=== PATIENT | male | born 1990 | race Caucasian/White ===

== ENCOUNTER 2021-12-28 08:51 | Emergency (ER) | payer OTHER ==
[~2021-12-28] VITALS: Ht 175.3 cm; Wt 100.0 kg
[2021-12-28] MEDS ORDERED: ACETAMINOPHEN 500 MG TABLET PO ONE (09:15)
[2021-12-28 09:19] VITALS: BP 170/90
--- NOTE | 2021-12-28 09:59 | RAD ---
3 views right knee 12/28/2021 9:33 AM Indication: Reason: R knee pain, acute, localizing anteriorly just above knee Comparison: None available Findings: There is no acute fracture or dislocation. Articular surfaces are uninterupted and smooth. Soft tissues are unremarkable. Impression: No evidence of acute osseous abnormality. Electronically signed by: Rey Sainz MD (12/28/2021 9:57 AM) [id number]
[2021-12-28] MEDS ORDERED: DICL50TA2 PO (10:09)
--- NOTE | 2021-12-28 10:09 | PHYS DOC ---
Past History Past Surgical History: No Surgical History Alcohol Use: None Adult General Chief Complaint Chief Complaint: KNEE INJURY HPI HPI The patient is a 31-year-old male who is otherwise healthy. He has had intermittent chronic problems with his right knee for a long time. He presents for evaluation of right knee discomfort with onset while walking down the stairs at home prior to arrival. He felt a pop followed by discomfort. He is able to ambulate with an antalgic gait and has discomfort when ranging his right knee. Discomfort localizes to the anterior aspect of the superior knee and just above it. No other injury during the episode. Took ibuprofen prior to arrival without complete relief of symptoms. Denies weakness, numbness or tingling to the distal right leg or foot. Vital signs are appropriate here aside from elevated blood pressure. Patient was able to ambulate in. Review of Systems Review of Systems Constitutional: Denies fever or chills [] Eyes: Denies change in visual acuity, redness, or eye pain [] HENT: Denies nasal congestion or sore throat [] Respiratory: Denies cough or shortness of breath [] Cardiovascular: No additional information not addressed in HPI [] GI: Denies abdominal pain, nausea, vomiting, bloody stools or diarrhea [] : Denies dysuria or hematuria [] Musculoskeletal: Denies back pain or joint pain [] Integument: Denies rash or skin lesions [] Neurologic: Denies headache, focal weakness or sensory changes [] Endocrine: Denies polyuria or polydipsia [] All other systems were reviewed and found to be within normal limits, except as documented in this note. Current Medications Current Medications Current Medications Medications (Trade) Dose Ordered Sig/Raoul Start Time Stop Time Status Last Admin Dose Admin Acetaminophen (Tylenol) 1,000 mg 1X ONCE 12/28/21 09:15 12/28/21 09:49 DC 12/28/21 09:15 1,000 MG Allergies Allergies Allergies Coded Allergies Type Severity Reaction Last Updated Verified No Known Drug Allergies 12/28/21 No Physical Exam Physical Exam 31-year-old male appearing nontoxic and in no acute distress. Head is normocephalic and atraumatic. Neck is supple and nontender. Oropharynx is moist. Lungs are clear to auscultation at all stations. There is a normal S1 and S2 without rubs or gallops and capillary refill is appropriate, less than 2 seconds globally. Abdomen is soft, nontender and nondistended. Skin is warm and dry without cyanosis, clubbing or edema. Psychiatrically, the patient demonstrates appropriate mood and affect and is alert. Evaluation of the right lower extremity is remarkable for mild tenderness without significant swelling and without erythema, warmth or joint irritability to the superior aspect of the anterior right knee. Patient has full active and passive range of motion at the right knee but with some discomfort. No discomfort with ranging at any other joint of the right lower extremity. Right lower extremity is neurovascularly intact distally with strength out of 5, sensation intact light touch in all nerve distributions, radial, DP/PT pulses 2+, capillary refill less than 2 seconds, foot warm and well-perfused. Current Patient Data Vital Signs Vital Signs Date Time Temp Pulse Resp B/P (MAP) Pulse Ox O2 Delivery O2 Flow Rate FiO2 12/28/21 09:19 98.2 110 16 170/90 (116) 98 EKG EKG [] Radiology/Procedures Radiology/Procedures Plain films of the right knee reviewed by me reveal no acute bony abnormality. Heart Score C/O Chest Pain: No Risk Factors: Risk Factors: DM, Current or recent (<one month) smoker, HTN, HLP, family history of CAD, obesity. Risk Scores: Risk Factors: DM, Current or recent (<one month) smoker, HTN, HLP, family history of CAD, obesity. Course & Med Decision Making Course & Med Decision Making Plain films unremarkable for evidence of acute fracture or dislocation. Will treat supportively with Reza wrap, crutches and scheduled anti-inflammatory medication. Will refer to orthopedics for close follow-up in the office. Patient's blood pressure was elevated here in the emergency department and I have advised him to follow that up with his primary doctor in the next 1 week. No evidence of acute endorgan damage from elevated blood pressure today. Patient understands that if he feels worse instead of better or develops other new symptoms of concern that he will need to return to the emergency department immediately for reevaluation. All questions are answered. Dragon Disclaimer Dragon Disclaimer This electronic medical record was generated, in whole or in part, using a voice recognition dictation system. Departure Departure: Impression: Primary Impression: Acute internal derangement of right knee Additional Impression: Elevated blood pressure reading without diagnosis of hypertension Disposition: 01 HOME / SELF CARE / HOMELESS Condition: GOOD Referrals: GUY VITALE II, MD Patient Instructions: Knee Pain Additional Instructions: Follow-up very closely with your primary care doctor in the office in the next 2 to 4 days for a reevaluation of your symptoms and a discussion of next best steps in care. Take the diclofenac anti-inflammatory medication as prescribed to reduce inflammation and improve discomfort. Your blood pressure was elevated here in the emergency department. I would like you to have your blood pressure rechecked at your upcoming primary doctor's office; if it remains elevated, you should discuss blood pressure medication with your primary doctor. Rest, ice and elevate your injured knee. Wear the immobilizer and use the crutches to stay off your knee until it feels better. You are welcome to bear weight on your knee as it feels better. You may call to make an appointment with Dr. Vitale of orthopedics at the telephone number provided. I would like you to follow-up with the orthopedic doctor in the office in the next 1 week. Return to the emergency department right away for worsening symptoms of any kind or with any other new symptoms of concern. Scripts Diclofenac Potassium (DICLOFENAC POTASSIUM) 50 Mg Tablet 50 MG PO TID for pain, #30 TAB Prov: LUCILA MARIE MD 12/28/21 Problem Qualifiers LUCILA MARIE MD Dec 28, 2021 10:09
== END 2021-12-28 10:30 | disposition home or self-care (01) ==
LOC: ER 08:51
DX: M23.91 Unspecified internal derangement of right knee (principal); R03.0 Elevated blood-pressure reading, without diagnosis of hypertension
CPT/HCPCS: 73562; 99283

== ENCOUNTER → 2022-01-19 | Outpatient (CLI) | payer OTHER ==
[2021-12-28 09:19] VITALS: BP 170/90
[~2022-01-19] MED LIST: DICL50TA2 PO
--- NOTE | 2022-01-19 11:39 | RAD ---
Exam: XR KNEE 4 VIEWS WITH PATELLA_RT History: Chronic pain. No known injury. Comparison: 12/28/2021 Findings: Osseous mineralization is normal. No acute fracture or dislocaton. No significant effusion. No signif icant degenerative changes. Soft tissues are unremarkable. Impression: 1. Unremarkable right knee. Electronically signed by: Jovanny Hensley MD (01/19/2022 11:37 AM) [id number]
== END ==
LOC: RAD 08:50
PROVIDERS: ATTEND Physician Assistant
DX: M25.561 Pain in right knee (principal)
CPT/HCPCS: 73564

== ENCOUNTER 2022-03-15 20:52 | Emergency (ER) | payer OTHER ==
[~2022-03-15] VITALS: Ht 175.3 cm; Wt 100.0 kg
[2022-03-15 21:12] VITALS: BP 155/95
[2022-03-15] MEDS ORDERED: KETOROLAC 60 MG/2 ML VIAL. IM ONE (22:15)
[2022-03-15] MEDS ORDERED: methylPREDNISolone SOD SUCC PF 125 MG/2 ML VIAL. IV ONE (22:15)
--- NOTE | 2022-03-15 22:19 | PHYS DOC ---
Past History Past Surgical History: Other Additional Past Surgical Histo: Right knee Alcohol Use: None General Adult EDM: Chief Complaint: KNEE INJURY HPI: HPI: Patient is a 31-year-old male coming to emergency department requesting drainage of his right knee. Patient had injury 2 and half months ago and has had persistent pain and swelling has been gradually getting worse. Patient was wearing a knee brace but was told by his orthopedic doctor to discontinue it and advance weightbearing as tolerated. Patient denies any new injury. Denies any fever, warmth, or erythema. He states that he has had prior knee injections of steroids. Try to call his orthopedic doctor today but was unable to get a hold of them so came to the emergency department. Review of Systems: Review of Systems: All other systems within normal limits except for as noted in the HPI Current Medications: Current Meds: Current Medications Medications (Trade) Dose Ordered Sig/Raoul Start Time Stop Time Status Last Admin Dose Admin Ketorolac Tromethamine (Toradol Im) 60 mg 1X ONCE 03/15/22 22:15 03/15/22 22:16 UNV Methylprednisolone Sodium Succinate (SOLU-Medrol 125MG VIAL) 125 mg 1X ONCE 03/15/22 22:15 03/15/22 22:16 UNV Allergies: Allergies: Allergies Coded Allergies Type Severity Reaction Last Updated Verified hydromorphone Allergy Unknown 03/15/22 Yes Physical Exam: PE: Constitutional: Well developed, well nourished, no acute distress, non-toxic appearance. [] HENT: Normocephalic, atraumatic, bilateral external ears normal, nose normal. [] Eyes: PERRLA, conjunctiva normal, no discharge. [] Neck: No rigidity, supple, no stridor. [] Cardiovascular: Regular rate and rhythm, brisk cap refill [] Lungs & Thorax: Non labored symmetric respirations, no tachypnea or respiratory distress [] Abdomen: Soft, nondistended. Skin: Warm, dry, no erythema, no rash. [] Back: Unremarkable Extremities: No deformities, range of motion grossly intact, no lower extremity edema. Swelling of right knee without warmth or erythema [] Neurologic: Alert and oriented X 3, no focal deficits noted. [] Psychologic: Affect normal, judgement normal, mood normal. [] Current Patient Data: Vital Signs: Vital Signs Date Time Temp Pulse Resp B/P (MAP) Pulse Ox O2 Delivery O2 Flow Rate FiO2 03/15/22 21:12 98.2 96 16 155/95 (115) 100 Room Air EKG: EKG: [] Radiology/Procedures: Radiology/Procedures: [] Heart Score: C/O Chest Pain: No Risk Factors: Risk Factors: DM, Current or recent (<one month) smoker, HTN, HLP, family history of CAD, obesity. Risk Scores: Score 0 - 3: 2.5% MACE over next 6 weeks - Discharge Home Score 4 - 6: 20.3% MACE over next 6 weeks - Admit for Clinical Observation Score 7 - 10: 72.7% MACE over next 6 weeks - Early Invasive Strategies Course & Med Decision Making: Course & Med Decision Making Is patient may treat with topical steroids and anti-inflammatories, joint aspiration is not an emergent procedure for chronic arthritis symptoms. Patient agrees to follow-up with his primary care provider or orthopedics. Patient is refusing to be transferred if there is joint aspiration, discussed that if we have an emergent need to remove fluid it would need to be sent for testing and he will need to be transferred to [place] pending results and since we do not have those capabilities here. Charanjit Disclaimer: KODA Disclaimer: This electronic medical record was generated, in whole or in part, using a voice recognition dictation system. Departure Departure: Impression: Primary Impression: Knee effusion, right Disposition: HOME / SELF CARE / HOMELESS Condition: STABLE Referrals: GUY VITALE II, MD Patient Instructions: Knee Wraps (Elastic Bandage) and RICE Scripts Methylprednisolone (MEDROL) 4 Mg Tab.ds.pk 1 PKG PO UD for steroid, #1 PKG Prov: SUJIT REDDING MD 03/15/22 Meloxicam (MELOXICAM) 15 Mg Tablet 1 TAB PO DAILY for pain for 30 Days, #30 TAB 0 Refills Prov: SUJIT REDDING MD 03/15/22 SUJIT REDDING MD Mar 15, 2022 22:19
[2022-03-15] MEDS ORDERED: METHYLPREDNISOLONE SOD SUCC 1000 MG/8 ML IV ONE (22:22)
[2022-03-15] MEDS ORDERED: methylPREDNISolone SOD SUCC PF 125 MG/2 ML VIAL. IM ONE (22:30)
[2022-03-15] MEDS ORDERED: METH4TAB2 PO (22:49)
[2022-03-15] MEDS ORDERED: MELO15TA23 PO (22:49)
--- NOTE | 2022-03-15 23:19 | RAD ---
Study: XR KNEE 3 VIEWS_RT Indication: Swelling. Limited range of motion. Pain. Comparison: 01/19/2022 Findings: Partially degraded study by positioning on the AP and oblique views. No acute fracture. Alignment is within normal limits. Maintained femorotibial compartment joint space height based on the lateral vie w. Moderate knee joint effusion increased from the comparison. Tiny patellar osteophytes. Unchanged luce ncy at the subchondral aspect of the patellar upper pole. Impression: 1. Moderate knee joint effusion increased from 01/19/2022. Relatively mild degenerative changes at the patellofemoral compartment though there could be subchondral cyst formation at the upper patella. The appearance is no different from the prior. 2. No acute fracture. If there is concern for injury to the soft tissue supporting structures of the knee consider eventual MRI. Electronically signed by: GALILEO ESPARZA MD (03/15/2022 11:17 PM) [facility]
== END 2022-03-15 23:10 | disposition home or self-care (01) ==
LOC: ER 20:52
DX: M25.461 Effusion, right knee (principal); Z88.5 Allergy status to narcotic agent
CPT/HCPCS: 73562; 96372; 99284; J1885; J2930